=== PATIENT | male | born 1970 | race Hispanic/Latino ===

== ENCOUNTER 2019-03-02 07:15 | Emergency (ER) | payer SELFPAY ==
[2019-03-02 07:32] VITALS: BP 106/62
[2019-03-02] MEDS ORDERED: TORADOL IV ONE (07:51)
--- NOTE | 2019-03-02 07:56 | Emergency Department Report ---
ED Seizure HPI - General Chief Complaint: Seizure Stated Complaint: POSS SEIZURE/HEAD PAIN Time Seen by Provider: 03/02/19 07:45 Source: patient Mode of arrival: Stretcher Limitations: No Limitations - History of Present Illness Initial Comments: 48-year-old male with history of seizures presents to ED for possible seizure. 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 Patient reports history of seizures and also C-spine fracture last year. The patient currently reports headache and neck pain. Patient says he has been compliant with Ivelisse LOPEZ Complaint: possible seizure -: This morning Description of Episode: loss of consciousness, bladder incontinence, post-event confusion Witnessed:: No Seizure History: known seizure disorder Place: street/outdoors Treatments Prior to Arrival: none - Related Data Previous Rx's Medication Instructions Recorded Last Taken Type levETIRAcetam [Keppra TAB] 500 mg PO BID #60 tablet 03/02/19 Unknown Rx Allergies Allergy/AdvReac Type Severity Reaction Status Date / Time acetaminophen [From Tylenol] Allergy Unknown Verified 03/02/19 07:28 ED Review of Systems ROS: Stated complaint: POSS SEIZURE/HEAD PAIN Other details as noted in HPI Comment: All other systems reviewed and negative Musculoskeletal: other (reports neck pain) Neurological: headache ED Past Medical Hx - Past Medical History Previous Medical History?: Yes Hx Seizures: Yes - Surgical History Past Surgical History?: Yes Additional Surgical History: neck - Social History Smoking Status: Current Every Day Smoker Substance Use Type: None - Medications Home Medications: Home Medications Medication Instructions Recorded Confirmed Last Taken Type levETIRAcetam [Keppra TAB] 500 mg PO BID #60 tablet 03/02/19 Unknown Rx ED Physical Exam - General Limitations: No Limitations General appearance: alert, in no apparent distress - Head Head exam: Present: atraumatic, normocephalic - Eye Eye exam: Present: normal appearance - ENT ENT exam: Present: mucous membranes moist - Neck Neck exam: Present: other (scar present, paraspinal tenderness) - Respiratory Respiratory exam: Present: normal lung sounds bilaterally. Absent: respiratory distress - Cardiovascular Cardiovascular Exam: Present: regular rate, normal rhythm - GI/Abdominal GI/Abdominal exam: Absent: distended - Neurological Exam Neurological exam: Present: alert, oriented X3, CN II-XII intact. Absent: motor sensory deficit - Psychiatric Psychiatric exam: Present: normal affect, normal mood ED Course Vital Signs 03/02/19 07:28 Temperature 97.5 F L Pulse Rate 60 Respiratory 16 Rate Blood Pressure 106/62 O2 Sat by Pulse 93 Oximetry ED Medical Decision Making - Lab Data Result diagrams: 03/02/19 07:56 03/02/19 07:56 - Radiology Data Radiology results: report reviewed, image reviewed - Medical Decision Making - hx seizures, likely seizure while walking home from work given confusion and urinary incontinence - A&O x 3 here in ED - no seizure activity while observed in ED x 2 hrs - Keppra given - CT Head and c-spine negative - neurology f/u advised - return precautions given - Differential Diagnosis seizure, intracranial injury, fracture, sprain Critical care attestation.: If time is entered above; I have spent that time in minutes in the direct care of this critically ill patient, excluding procedure time. ED Disposition Clinical Impression: Seizure Disposition: DC-01 TO HOME OR SELFCARE Is pt being admited?: No Condition: Stable Instructions: Recurrent Seizures Adult (ED) Prescriptions: levETIRAcetam [Keppra TAB] 500 mg PO BID #60 tablet Referrals: [facility] [Provider Group] - 3-5 Days PRIMARY CAREMD [Primary Care Provider] - 3-5 Days DEB DAHL MD [Referring] - 3-5 Days Time of Disposition: 09:24
[2019-03-02] MEDS ORDERED: KEPPRA 1,000 MG in NACL 0.9% 100 ML IV ONE (08:00)
[2019-03-02 08:10] LABS: Basophils % (Auto) 0.7 % (0.0-1.8); Eosinophils # (Auto) 0.2 K/mm3 (0.0-0.4); Eosinophils % (Auto) 2.8 % (0.0-4.3); Hematocrit 39.5 % (35.5-45.6); Hemoglobin 13.4 gm/dl (11.8-15.2); Lymphocytes # (Auto) 1.1 K/mm3 (1.2-5.4); Lymphocytes % (Auto) 18.2 % (13.4-35.0); Mean Corpuscular HGB Conc 34 % (32-34); Mean Corpuscular Volume 93 fl (84-94); Monocytes # (Auto) 0.6 K/mm3 (0.0-0.8); Monocytes % (Auto) 9.3 % (0.0-7.3); Platelet Count 189 K/mm3 (140-440); Red Blood Count 4.25 M/mm3 (3.65-5.03); Red Cell Distribution Width 13.7 % (13.2-15.2)
--- NOTE | 2019-03-02 08:26 | Cat Scan Report ---
PROCEDURE: CT HEAD/BRAIN WO CON TECHNIQUE: A noncontrast CT of the head was performed. HISTORY: seizure, fall, pain COMPARISON: None FINDINGS: There is no acute intracranial hemorrhage. There is no brain edema, mass effect or midline shift. Ventricular size is appropriate for brain volume. There is no abnormal extra-axial fluid collections. There is no skull fracture seen. The visualized paranasal sinuses are clear. IMPRESSION: There is no acute intracranial abnormality seen. This document is electronically signed by Alanna Muñiz MD., Mar 02 2019 08:24:48 AM ET
--- NOTE | 2019-03-02 08:29 | Cat Scan Report ---
PROCEDURE: CT CERVICAL SPINE WO CON TECHNIQUE: CT of the cervical spine performed. Axial images and coronal and sagittal reformatted imag es were obtained. HISTORY: fall, pain COMPARISON: None FINDINGS: Vertebral heights and alignment are maintained. Patient is status post anterior cervical fusion from C5 to C7. No fracture identified. There is streak artifact from hardware which limits visualization of bone det ail at the surgical levels. IMPRESSION: There is no acute cervical spine fracture or posttraumatic subluxation seen. Note limitations due to artifact from hardware. This document is electronically signed by Alanna Muñiz MD., Mar 02 2019 08:27:33 AM ET
[2019-03-02 08:30] LABS: BUN/Creatinine Ratio 16; Blood Urea Nitrogen 16 mg/dL (9-20); Calcium 8.9 mg/dL (8.4-10.2); Hemolysis Index 1
== END 2019-03-02 09:46 | disposition home or self-care (01) ==
LOC: ED 07:15
DX: R56.9 Unspecified convulsions (principal); F17.200 Nicotine dependence, unspecified, uncomplicated; Z88.6 Allergy status to analgesic agent
CPT/HCPCS: 36415; 70450; 72125; 80048; 85025; 96365; 96375; 99284; J1885; J1953

== ENCOUNTER 2019-03-02 22:43 | Emergency (ER) | payer SELFPAY ==
[2019-03-02] MEDS ORDERED: KEPPRA 1,000 MG/NS 0.75% 100ML 1,000 MG/100 ML BAG IV ONE (22:55)
--- NOTE | 2019-03-02 22:59 | Emergency Department Report ---
ED General Adult HPI - General Chief complaint: Seizure Stated complaint: AMS Time Seen by Provider: 03/02/19 22:46 Source: patient, EMS (verbal report received from EMS.ems notes not available at time of chart dictation), RN notes reviewed, old records reviewed Mode of arrival: Stretcher Limitations: Other (the patient is a poor historian) - History of Present Illness Initial comments: This is a 48-year-old gentleman. The patient is not known to this provider previously. He may have a history of seizures. The patient is brought to the hospital by EMS for questionable seizures. He was reportedly found down, with reported convulsive activity. EMS reports normal Accu-Chek in the field. Patient seen in this department earlier on today by my colleague, Dr. Caceres. He had an extensive workup, including basic laboratory studies, CT scan of the brain and cervical spine, and was started empirically on Keppra. Patient is not sure if he had his prescription filled. He complains of headache and neck pain. The headache is "all over." The neck pain is "all over." His pain is sharp, increases with palpation, range of motion, decreases with rest. It does not radiate anywhere. He denies focal extremity weakness or numbness. He denies chest pain, abdominal pain, shortness of breath, urinary symptoms. He doesn't know what happened to him. -: Sudden Quality: other Consistency: other Improves with: other Worsens with: other - Related Data Previous Rx's Medication Instructions Recorded Last Taken Type levETIRAcetam [Keppra TAB] 500 mg PO BID #60 tablet 03/03/19 Unknown Rx Allergies Allergy/AdvReac Type Severity Reaction Status Date / Time acetaminophen [From Tylenol] Allergy Unknown Verified 03/02/19 07:28 ED Review of Systems ROS: Stated complaint: AMS Other details as noted in HPI Constitutional: malaise, weakness Eyes: denies: eye discharge ENT: denies: congestion Respiratory: denies: cough Cardiovascular: denies: chest pain Gastrointestinal: abdominal pain Genitourinary: denies: dysuria Musculoskeletal: arthralgia Neurological: headache, confusion Psychiatric: anxiety ED Past Medical Hx - Past Medical History Hx Seizures: Yes - Surgical History Additional Surgical History: neck - Social History Smoking Status: Current Every Day Smoker Substance Use Type: None - Medications Home Medications: Home Medications Medication Instructions Recorded Confirmed Last Taken Type levETIRAcetam [Keppra TAB] 500 mg PO BID #60 tablet 03/03/19 Unknown Rx ED Physical Exam - General Limitations: Other (the patient is a poor historian patient may be post ictal) General appearance: alert, anxious - Head Head exam: Present: atraumatic, normocephalic - Eye Eye exam: Present: normal appearance, PERRL, EOMI, other (visual acuity intact t o finger counting, color perception and a close distance). Absent: nystagmus - ENT ENT exam: Present: normal exam, normal orophraynx, mucous membranes moist, no rmal external ear exam - Neck Neck exam: Present: normal inspection, full ROM, other (there is no midline cervical spine tenderness. There is paracervical tenderness.) - Respiratory Respiratory exam: Present: normal lung sounds bilaterally. Absent: respiratory distress - Cardiovascular Cardiovascular Exam: Present: regular rate, normal rhythm, normal heart sounds. Absent: bradycardia, tachycardia, irregular rhythm, systolic murmur, diastolic murmur, rubs, gallop - GI/Abdominal GI/Abdominal exam: Present: soft. Absent: distended, tenderness, guarding, rebound, rigid, pulsatile mass - Rectal Rectal exam: Present: deferred - Extremities Exam Extremities exam: Present: full ROM, other (2+ pulses noted in the bilateral upper, lower extremities. Compartments soft. No long bony tenderness. The pelvis is stable.). Absent: calf tenderness - Back Exam Back exam: Present: normal inspection, full ROM. Absent: tenderness, CVA tenderness (R), CVA tenderness (L), paraspinal tenderness, vertebral tenderness - Neurological Exam Neurological exam: Present: alert (patient alert to name, location, and can't give his home address. He states he lives in [place]. He is visiting [facility] other (Extraocular movements intact. Tongue midline. No facial droop. Facial sensation intact to light touch in the V1, V2, V3 distribution bilaterally. 5 and 5 strength in 4 extremities.. Sensation is intact to light touch in 4 extremities.) - Psychiatric Psychiatric exam: Present: anxious - Skin Skin exam: Present: warm, dry, intact, normal color. Absent: rash ED Course Vital Signs 03/02/19 03/02/19 03/03/19 22:55 23:07 00:28 Temperature 97.0 F L Pulse Rate 75 58 L Respiratory 18 16 16 Rate Blood Pressure 135/82 Blood Pressure 116/67 [Left] O2 Sat by Pulse 93 93 93 Oximetry 03/03/19 01:52 Temperature Pulse Rate 62 Respiratory 16 Rate Blood Pressure Blood Pressure 117/74 [Left] O2 Sat by Pulse 94 Oximetry - Reevaluation(s) Reevaluation #1: 03/02/19 23:46 Differential diagnosis, including but not limited to: Intracranial injury, cervical spine injury, breakthrough seizure, electrolyte derangement, convulsion, pseudoseizure, hypoglycemia Assessment and plan: 48-year-old gentleman with questionable seizure, nonfocal motor exam, somewhat confused, question postictal, follows commands, primary survey unremarkable, secondary survey unremarkable. Found to have a blood glucose of 67. We will load him with Reevaluation #2: 03/02/19 23:59 CT scan of the brain, cervical spine negative for acute disease. So far, no additional convulsions. Reevaluation #3: 03/03/19 00:37 Accu-Chek improved. Objective laboratory testing unremarkable. CT scan of the brain, cervical spine negative for acute traumatic disease. No further convulsive events noted in the emergency room. Patient has been in the emergency room for approximately 2 hours without clinical decompensation. He is counseled to not drive or operate motor vehicles for the next 6 months, the importance of medication compliance was reiterated to the patient, and he will be instructed to follow-up with an outpatient neurology physician or primary care doctor. Reevaluation #4: 03/03/19 00:50 Patient eating food without difficulty. ED Medical Decision Making - Lab Data Result diagrams: 03/02/19 23:48 Vital Signs 03/02/19 03/02/19 22:55 23:07 Temperature 97.0 F L Pulse Rate 75 Respiratory 18 16 Rate Blood Pressure 135/82 O2 Sat by Pulse 93 93 Oximetry Lab Results 03/02/19 Range/Units 23:02 POC Glucose 67 L (70-105) Vital Signs 03/02/19 03/02/19 22:55 23:07 Temperature 97.0 F L Pulse Rate 75 Respiratory 18 16 Rate Blood Pressure 135/82 O2 Sat by Pulse 93 93 Oximetry Labs 03/02/19 03/02/19 03/02/19 23:02 23:48 23:48 Sodium 144 Potassium 4.0 Chloride 106.3 Carbon Dioxide 25 Anion Gap 17 BUN 23 H Creatinine 1.0 Estimated GFR > 60 BUN/Creatinine Ratio 23 Glucose 100 POC Glucose 67 L Calcium 9.8 Magnesium 2.10 Total Creatine Kinase 233 H Salicylates < 0.3 L Acetaminophen Plasma/Serum Alcohol 03/02/19 03/02/19 23:48 23:48 Sodium Potassium Chloride Carbon Dioxide Anion Gap BUN Creatinine Estimated GFR BUN/Creatinine Ratio Glucose POC Glucose Calcium Magnesium Total Creatine Kinase Salicylates Acetaminophen < 5.0 L Plasma/Serum Alcohol < 0.01 - EKG Data -: EKG Interpreted by Me EKG shows normal: sinus rhythm, axis, intervals, QRS complexes - EKG Data When compared to previous EKG there are: previous EKG unavailable Interpretation: normal EKG - Radiology Data Radiology results: pending, report reviewed, image reviewed Critical care attestation.: If time is entered above; I have spent that time in minutes in the direct care of this critically ill patient, excluding procedure time. ED Disposition Clinical Impression: History of convulsions Disposition: - TO HOME OR SELFCARE Is pt being admited?: No Does the pt Need Aspirin: No Condition: Stable Additional Instructions: Take the seizure medication as directed. Do not drive or operate motor vehicles for the next 6 months. Follow up with a primary care doctor or neurology specialist within the next 7-10 days. Make certain to eat 3-4 meals every day. Return to the emergency room right away with new pain, worsened pain, migration of pain, vomiting, change in mental status, confusion, inability to tolerate liquid feeds. It is very important to take the prescribed seizure medication. Not taking his seizure medication may result in breakthrough seizures, which in turn may cause disability, , paralysis, loss of quality of life. Prescriptions: levETIRAcetam [Keppra TAB] 500 mg PO BID #60 tablet Referrals: CARLIE VILLALTA MD [Primary Care Provider] - 3-5 Days DEB DAHL MD [Referring] - 3-5 Days SOL GAR MD [Staff Physician] - 3-5 Days BIANKA TRAVIS MD [Staff Physician] - 3-5 Days [facility] [Provider Group] - 3-5 Days
[2019-03-02] MEDS ORDERED: D50W (25GM) Vial IV ONE (23:14)
[2019-03-02] MEDS ORDERED: D50W (25GM) Vial IV PRN (23:14)
--- NOTE | 2019-03-02 23:47 | Cat Scan Report ---
PROCEDURE: CT HEAD/BRAIN WO CON TECHNIQUE: Computerized tomography of the head was performed without contrast material. CT DOSE LENGTH PRODUCT: 805.4 mGycm HISTORY: hx of sz, found down ams, post ictal, viera, neck maisha COMPARISONS: None . FINDINGS: Skull and scalp: Normal . Paranasal sinuses: Normal . Ventricles and subarachnoid spaces: Normal . Cerebrum: No evidence of hemorrhage, acute infarction or mass . Cerebellum and brainstem: No evidence of hemorrhage, acute infarction or mass . Vasculature: Normal . Other: None . ASPECTS: 10 IMPRESSION: Normal Examination . This document is electronically signed by Betty Cordero DO., Mar 02 2019 11:45:35 PM ET
--- NOTE | 2019-03-02 23:49 | Cat Scan Report ---
PROCEDURE: CT CERVICAL SPINE WO CON TECHNIQUE: Computerized tomography of the cervical spine was performed from the skull base to T1 wit hout contrast material. CT DOSE LENGTH PRODUCT: 918.4 mGycm HISTORY: hx of sz, found down ams, post ictal, viera, neck maisha COMPARISONS: None . FINDINGS: The alignment is normal. There has been previous spinal fixation with hardware identified along the a nterior posterior aspects of the C5 through the T1 vertebral levels. No acute fracture or dislocation . Spinal canal is adequate at all levels.. IMPRESSION: There is no evidence of an acute fracture or dislocation. There has been extensive previ ous spinal fixation with hardware from the C5 through the T1 vertebral levels. . This document is electronically signed by Betty Cordero DO., Mar 02 2019 11:47:51 PM ET
[2019-03-03 00:11] LABS: BUN/Creatinine Ratio 23; Blood Urea Nitrogen 23 mg/dL (9-20); Calcium 9.8 mg/dL (8.4-10.2); Hemolysis Index 10
[2019-03-03] MEDS ORDERED: TORADOL IV ONE (00:50)
[2019-03-03 01:52] VITALS: BP 117/74
== END 2019-03-03 01:52 | disposition home or self-care (01) ==
LOC: ED 22:43
DX: G40.909 Epilepsy, unspecified, not intractable, without status epilepticus (principal); J45.909 Unspecified asthma, uncomplicated
CPT/HCPCS: 36415; 70450; 72125; 80048; 82550; 82962; 83735; 93005; 93010; 96374; 96375; 99285; G0480; J1885; J1953; 80320

== ENCOUNTER 2019-11-21 06:21 | Emergency (ER) | payer OTHER ==
[2019-11-21 06:36] VITALS: BP 148/75
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
[2019-11-21 07:57] LABS: Amphetamine Screen,Urine PRESUMPTIVE NEGATIVE; Benzodiazepines Screen,Urine PRESUMPTIVE NEGATIVE; Cocaine Screen,Urine PRESUMPTIVE NEGATIVE; Methadone Screen,Urine PRESUMPTIVE NEGATIVE; Opiate Screen,Urine PRESUMPTIVE NEGATIVE
[2019-11-21 08:19] LABS: Cannabinoid Screen,Urine PRESUMPTIVE POSITIVE
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
[2019-11-21] MEDS ORDERED: ONDANSETRON 4 MG/2 ML INJ ONE (08:49)
[2019-11-21] MEDS: ONDANSETRON 4 MG/2 ML INJ IV ONE (08:52)
[2019-11-21 09:05] LABS: Basophils # (Auto) 0.1 K/mm3 (0.0-0.1); Basophils % (Auto) 0.8 % (0.0-1.8); Eosinophils # (Auto) 0.1 K/mm3 (0.0-0.4); Eosinophils % (Auto) 1.6 % (0.0-4.3); Hematocrit 45.5 % (35.5-45.6); Hemoglobin 15.5 gm/dl (11.8-15.2); Lymphocytes # (Auto) 0.9 K/mm3 (1.2-5.4); Lymphocytes % (Auto) 13.3 % (13.4-35.0); Mean Corpuscular HGB Conc 34 % (32-34); Mean Corpuscular Volume 96 fl (84-94); Monocytes # (Auto) 0.7 K/mm3 (0.0-0.8); Monocytes % (Auto) 10.7 % (0.0-7.3); Platelet Count 227 K/mm3 (140-440); Red Blood Count 4.75 M/mm3 (3.65-5.03); Red Cell Distribution Width 14.6 % (13.2-15.2)
[2019-11-21 09:25] LABS: Alanine Aminotransferase 29 units/L (7-56); Albumin 4.1 g/dL (3.9-5); BUN/Creatinine Ratio 23; Blood Urea Nitrogen 18 mg/dL (9-20); Calcium 9.5 mg/dL (8.4-10.2); Hemolysis Index 33
== END 2019-11-21 11:00 | disposition home or self-care (01) ==
LOC: ED 06:21
DX: S09.8XXA Other specified injuries of head, initial encounter (principal); R11.10 Vomiting, unspecified; G40.909 Epilepsy, unspecified, not intractable, without status epilepticus; F43.10 Post-traumatic stress disorder, unspecified; F17.200 Nicotine dependence, unspecified, uncomplicated; Z79.899 Other long term (current) drug therapy; Z88.6 Allergy status to analgesic agent; W22.8XXA Striking against or struck by other objects, initial encounter; Y93.89 Activity, other specified; Y92.89 Other specified places as the place of occurrence of the external cause; Y99.8 Other external cause status
CPT/HCPCS: 36415; 70450; 80053; 80307; 83690; 85025; 96374; 99284; J2405; 80320; G0480

== ENCOUNTER 2020-02-26 07:08 | Emergency (ER) | payer SELFPAY ==
[2020-02-26] MEDS ORDERED: ONDANSETRON 4 MG/2 ML INJ IM ONE (08:17)
[2020-02-26] MEDS ORDERED: fentaNYL 100 MCG/2 ML INJ IM ONE (08:17)
--- NOTE | 2020-02-26 08:23 | Emergency Department Report ---
HPI - General Chief Complaint: Back Pain/Injury PUI?: No Time Seen by Provider: 02/26/20 08:02 - HPI HPI: Room 17 The patient is a 49-year-old male present with a chief complaint left leg paralysis. Patient states he had a spinal fusion 2 days ago. Patient states this morning while in his car he had bowel incontinence. Patient states he got out of his car to go to the bathroom to clean himself up with his left leg gave out. Patient states his left leg is numb and paralyzed. The patient states he cannot remember the name of the physician who did his surgery 2 days ago ED Past Medical Hx - Past Medical History Previous Medical History?: Yes Hx Seizures: Yes Additional medical history: PTSD - Surgical History Past Surgical History?: No Additional Surgical History: neck, lumbar fusion - Family History Family history: no significant - Social History Smoking Status: Current Every Day Smoker (1/7 pack/day) Substance Use Type: Marijuana - Medications Home Medications: Home Medications Medication Instructions Recorded Confirmed Last Taken Type levETIRAcetam [Keppra TAB] 500 mg PO BID #60 tablet 03/03/19 Unknown Rx Ondansetron [Zofran ODT TAB] 8 mg PO Q12HR #20 tab.rapdis 11/21/19 Unknown Rx traMADoL [Ultram] 50 mg PO Q6HR PRN #15 tablet 02/26/20 Unknown Rx ED Review of Systems ROS: Stated complaint: BACK PAIN Other details as noted in HPI Neurological: weakness, paresthesias, other (Bowel incontinence) Physical Exam - Physical Exam Vital Signs: Vital Signs 02/26/20 07:30 Temperature 98 F Pulse Rate 90 Respiratory 18 Rate Blood Pressure 155/86 O2 Sat by Pulse 97 Oximetry Physical Exam: GENERAL: The patient is well-developed well-nourished male lying on stretcher in left lateral decubitus position. [] HEENT: Normocephalic. Atraumatic. Extraocular motions are intact. Patient has moist mucous membranes. NECK: Supple. Trachea midline CHEST/LUNGS: There is no respiratory distress noted. HEART/CARDIOVASCULAR: Regular. There is no tachycardia. 2+ left DP SKIN: T lumbar spine surgical site clean dry and intact NEURO: The patient is awake, alert, and oriented. The patient is cooperative. The patient states he has no sensation to the left lower extremity and is unable to move it. The patient has normal speech MUSCULOSKELETAL: There is no evidence of acute injury. ED Course Vital Signs 02/26/20 07:30 Temperature 98 F Pulse Rate 90 Respiratory 18 Rate Blood Pressure 155/86 O2 Sat by Pulse 97 Oximetry - Consultations Consultation #1: 02/26/20 08:43 I spoke with the ED physician at [facility] who states the patient has not been there since 02/12/2020. There is no record of recent spinal surgery. Consultation #2: 02/26/20 08:45 [facility] transfer line called Consultation #3: 02/26/20 09:16 Case discussed with patient's neurosurgeon Dr. Joya-states patient needs MRI. If it shows cord compression patient will need to be transferred. ED Medical Decision Making - Radiology Data Radiology results: report reviewed (MRI lumbar spine), image reviewed (MRI lumbar spine) [facility] [address] [place] [address] Magnetic Resonance Report Signed Patient: JOSE A SCHULTZ MR#: [id number] : 1970 Acct:[id number] Age/Sex: 49 / M ADM Date: 02/26/20 Loc: ED Attending Dr: Ordering Physician: FREDERIC BAUER MD Date of Service: 02/26/20 Procedure(s): MR lumbar spine wo con Accession Number(s): [id number] cc: FREDERIC BAUER MD MR lumbar spine wo con INDICATION / CLINICAL INFORMATION: 49 years Male; s/p surg. bowel incontinence, LLe weakness. TECHNIQUE: Multisequence, multiplanar images of the lumbar spine were obtained. Motion artifact. COMPARISON: None available. FINDINGS: POST-SURGICAL CHANGES: Posterior fusion hardware seen from L4 through S1-bilateral intrapedicular screws noted. Partial, bilateral hemilaminectomies seen at both levels as well. ALIGNMENT: Normal lum bar lordosis without significant scoliosis. VERTEBRAE:Grossly normal marrow signal and vertebral body height for age. VISUALIZED SPINAL CORD: No significant abnormality. Conus is grossly normal in appearance. INTERVERTEBRAL DISCS: Grossly normal in height and signal intensity at nonoperative levels. [id number]-LM-[id number] ANALYSIS: T12-L1: Mild disc bulge and small right lateral recess disc protrusion. No significant sequela. L1-2: No significant abnormality. L2-3: Mild facet hypertrophy. L3-4: Mild disc bulge and facet hypertrophy. Small posterocentral annular tear noted. Mild foraminal narrowing on the right. L4-5: As above. No significant canal stenosis or foraminal narrowing appreciated. L5- S1: As above. No significant canal stenosis. Mild to moderate osseous foraminal narrowing suggested bilaterally. PARASPINAL SOFT TISSUES: No significant abnormality. ADDITIONAL FINDINGS: None. IMPRESSION: 1. Degenerative and postoperative changes of the lumbar spine as described above. No single, domina nt cause for patient's symptomatology appreciated. Signer Name: Nain Chester MD, III Signed: 02/26/2020 3:12 PM Workstation Name: [email or web address] Transcribed By: HR Dictated By: Nain Chester MD Electronically Authenticated By: Nain Chester MD Signed Date/Time: 02/26/201511 DD/ 05 TD/TT: - Medical Decision Making Patient states she has "metal" in his body and is unable to receive an MRI - Differential Diagnosis Cauda equina syndrome, lumbar radiculopathy, malingering Critical care attestation.: If time is entered above; I have spent that time in minutes in the direct care of this critically ill patient, excluding procedure time. ED Disposition Clinical Impression: Back pain Disposition: DC-01 TO HOME OR SELFCARE Is pt being admited?: No Does the pt Need Aspirin: No Condition: Stable Instructions: Back Pain (ED) Additional Instructions: Return to the emergency department should you develop worsening symptoms, inability to tolerate food or liquids, high fever or any other concerns Prescriptions: traMADoL [Ultram] 50 mg PO Q6HR PRN #15 tablet PRN Reason: Pain Referrals: Dr Joya, neurosurgery [Other] - 3-5 Days (Please follow-up with your neurosurgeon for further evaluation) Time of Disposition: 15:23
[2020-02-26] MEDS ORDERED: traMADol 50 MG TAB PO ONE (13:01)
[2020-02-26] MEDS ORDERED: traMADol 50 MG TAB ONE (13:02)
[2020-02-26 15:59] VITALS: BP 139/76
== END 2020-02-26 16:10 | disposition home or self-care (01) ==
LOC: ED 07:08
DX: M54.9 Dorsalgia, unspecified (principal); F17.200 Nicotine dependence, unspecified, uncomplicated; F12.90 Cannabis use, unspecified, uncomplicated; Z98.890 Other specified postprocedural states; Z86.69 Personal history of other diseases of the nervous system and sense organs; Z79.899 Other long term (current) drug therapy; Z88.8 Allergy status to other drugs, medicaments and biological substances
CPT/HCPCS: 72148; 96372; 99284; J2405; J3010